=== PATIENT | male | born 1960 | race Caucasian/White ===

== ENCOUNTER 2016-07-25 09:41 | Inpatient (IN) | payer OTHER ==
--- NOTE | 2016-07-25 10:16 | EDPHY ---
H & P Time Seen by Provider: 07/25/16 10:13 HPI/ROS: Chief complaint. Abdominal pain HPI. 55-year-old male long history of Crohn's disease presents with abdominal pain beginning last night worse today. It is periumbilical described as stabbing. No radiation. It is associated with nausea vomiting diarrhea. He has been off Humira secondary to waiting for a hip replacement. Saw his pain management physician yesterday who switched him from oxycodone which the patient has been using for years to Belbuca which appears to be and agonist antagonist. No fever. Similar symptoms to previous Crohn's flare-ups ROS Constitutional. no fever/chills, no weakness Eyes. no problems with vision ENT. no sore throat, no nasal drainage Cardiovascular. no chest pain Respiratory. no shortness of breath, no cough Abdominal. Abdominal pain with vomiting and diarrhea . no problems urinating MS. no calf pain/swelling, no neck/back pain, no joint pain Skin. no rash Lymph. no swollen glands Neuro. no headache, no dizziness, no difficulty walking or with speech Past Medical/Surgical History: Past medical history Crohn's disease, bowel resection, vascular necrosis both hips Social History: , nonsmoker, no alcohol Smoking Status: Former smoker Physical Exam: General Appearance: Alert well-developed male moderate distress vital signs are stable with a little bit of hypertension Eyes: Pupils equal and round no pallor or injection. ENT, Mouth: Mucous membranes are moist. Respiratory: There are no retractions, lungs are clear to auscultation. Cardiovascular: Regular rate and rhythm. Gastrointestinal: Abdomen is diffusely tender. No masses. Normal bowel sounds Neurological: Awake and alert, sensory and motor exams grossly normal. Skin: Warm and dry, no rashes. Musculoskeletal: Neck is supple nontender. Extremities symmetrical, full range of motion. Psychiatric: Patient is oriented X 3, there is no agitation. Constitutional: Initial Vital Signs Temperature (C) 36.7 C 07/25/16 09:45 Heart Rate 74 07/25/16 09:45 Respiratory Rate 14 07/25/16 09:45 Blood Pressure 160/103 H 07/25/16 09:45 O2 Sat (%) 95 07/25/16 09:45 O2 Delivery Mode Room Air O2 (L/minute) 2 Allergies/Adverse Reactions: fentanyl Allergy (Verified 05/19/16 10:52) Dyspnea nalbuphine HCl [From Nubain] Allergy (Verified 05/19/16 10:52) Other-Enter Comments Home Medications: Medication Instructions Recorded Ondansetron Odt [Zofran Odt 4 mg 8 mg PO TID PRN 02/25/16 (*)] Prochlorperazine Maleate 25 mg RC DAILY PRN 02/25/16 [Compazine 25mg supp (*)] Adalimumab [Humira Pen] 40 mg SQ SA 04/17/16 Cyanocobalamin [Vitamin B12 1,000 mcg IM Q30D 04/17/16 1000MCG/ML (*)] Herbals/Supplements -Info Only 1 ea PO DAILY 04/17/16 Hydrocortisone Acetate [Proctosert 30 mg RC DAILY PRN 04/17/16 Hc] SUMAtriptan [Imitrex 50 MG (*)] 50 mg PO DAILY PRN 04/17/16 oxyCODONE IR [Oxycodone Ir (*)] 60 mg PO Q4 PRN #90 tab 05/23/16 Buprenorphine HCl [Belbuca] 300 mcg BC BID 07/25/16 oxyCODONE IR [Oxycodone Ir (*)] 5 mg PO Q6H PRN 07/25/16 Medical Decision Making - Diagnostics Imaging: CT abdomen and pelvis with IV contrast shows thickening of the transverse and descending colon consistent with inflammatory bowel disease. No evidence of perforation or abscess Procedures: IV normal saline. Dilaudid for pain. Zofran for nausea I-STAT is performed and is normal ED Course/Re-evaluation: 11:40 a.m. patient has had 3 mg of Dilaudid IV and is asking for more. At this point we will decline. Certainly there may be some element of narcotic withdrawal but there may be some element of drug-seeking behavior as well I have discussed imaging and lab results with the patient and his . We discussed treatment plan including need for admission and further evaluation. They expressed understanding and agreement I consulted and discussed the case with Dr. Bassett, hospitalist, who agrees to the admission Differential Diagnosis: Patient has long history of Crohn's disease with 5 in colon resections. He was switched from chronic opiate use to an antagonist agonist yesterday. I suspect that there is some element of opiate withdrawal with his symptoms. CT does show inflamed transverse and descending colon consistent with Crohn's disease. No evidence of abscess. Plan is admission - Data Points Laboratory Results: Laboratory Results 07/25/16 10:21 07/25/16 10:03 07/25/16 07/25/16 07/25/16 10:21 10:06 10:03 WBC 10.18 10^3/uL H 10^3/uL (3.80-9.50) RBC 4.67 10^6/uL 10^6/uL (4.40-6.38) Hgb 14.5 g/dL g/dL (13.7-17.5) POC Hgb 15.6 gm/dL gm/dL (14.5-17.3) Hct 42.3 % % (40.0-51.0) POC Hct 46 % % (42.8-50.6) MCV 90.6 fL fL (81.5-99.8) MCH 31.0 pg pg (27.9-34.1) MCHC 34.3 g/dL g/dL (32.4-36.7) RDW 12.7 % % (11.5-15.2) Plt Count 258 10^3/uL 10^3/uL (150-400) MPV 9.2 fL fL (8.7-11.7) Neut % (Auto) 77.0 % H % (39.3-74.2) Lymph % (Auto) 18.7 % % (15.0-45.0) Travis % (Auto) 3.5 % L % (4.5-13.0) Eos % (Auto) 0.2 % L % (0.6-7.6) Baso % (Auto) 0.3 % % (0.3-1.7) Nucleat RBC Rel Count 0.0 % % (0.0-0.2) Absolute Neuts (auto) 7.84 10^3/uL H 10^3/uL (1.70-6.50) Absolute Lymphs (auto) 1.90 10^3/uL 10^3/uL (1.00-3.00) Absolute Monos (auto) 0.36 10^3/uL 10^3/uL (0.30-0.80) Absolute Eos (auto) 0.02 10^3/uL L 10^3/uL (0.03-0.40) Absolute Basos (auto) 0.03 10^3/uL 10^3/uL (0.02-0.10) Absolute Nucleated RBC 0.00 10^3/uL 10^3/uL (0-0.01) Immature Gran % 0.3 % % (0.0-1.1) Immature Gran # 0.03 10^3/uL 10^3/uL (0.00-0.10) POC Sodium 139 mEq/L mEq/L (134-144) Sodium 137 mEq/L mEq/L (134-144) POC Potassium 3.9 mEq/L mEq/L (3.3-5.0) Potassium 4.1 mEq/L mEq/L (3.5-5.2) POC Chloride 104 mEq/L mEq/L (96-108) Chloride 103 mEq/L mEq/L (97-110) Carbon Dioxide 21 mEq/l L mEq/l (22-31) Anion Gap 13 mEq/L mEq/L (8-16) POC BUN 16 mg/dL mg/dL (7-23) BUN 15 mg/dL mg/dL (7-23) Creatinine 0.9 mg/dL mg/dL (0.7-1.3) POC Creatinine 0.9 mg/dL mg/dL (0.8-1.5) Estimated GFR > 60 Glucose 128 mg/dL H mg/dL (70-100) POC Glucose 136 mg/dL H mg/dL (70-100) Calcium 10.0 mg/dL mg/dL (8.5-10.4) Total Bilirubin 1.3 mg/dL mg/dL (0.1-1.4) Conjugated Bilirubin 0.6 mg/dL H mg/dL (0.0-0.5) Unconjugated Bilirubin 0.7 mg/dL mg/dL (0.0-1.1) AST 23 IU/L IU/L (17-59) ALT 33 IU/L IU/L (21-72) Alkaline Phosphatase 94 IU/L IU/L (38-126) Total Protein 8.0 g/dL g/dL (6.3-8.2) Albumin 4.6 g/dL g/dL (3.5-5.0) Lipase 130.0 IU/L IU/L (23-300) Medications Given: Discontinued Medications Hydromorphone HCl (Dilaudid) 1 mg IVP EDNOW ONE Stop: 07/25/16 10:23 Last Admin: 07/25/16 10:30 Dose: 1 mg Hydromorphone HCl (Dilaudid) 1 mg IVP EDNOW ONE Stop: 07/25/16 10:47 Last Admin: 07/25/16 10:47 Dose: 1 mg Hydromorphone HCl (Dilaudid) 1 mg IVP EDNOW ONE Stop: 07/25/16 11:16 Last Admin: 07/25/16 11:17 Dose: 1 mg Hydromorphone HCl (Dilaudid) 1 mg IVP EDNOW ONE Stop: 07/25/16 13:36 Last Admin: 07/25/16 13:52 Dose: 1 mg Sodium Chloride (Ns) 1,000 mls @ 0 mls/hr IV ONCE ONE PRN Reason: Wide Open Stop: 07/25/16 10:22 Last Admin: 07/25/16 10:31 Dose: 1,000 mls Ondansetron HCl (Zofran) 4 mg IVP EDNOW ONE Stop: 07/25/16 10:22 Last Admin: 07/25/16 10:31 Dose: 4 mg Point of Care Test Results: 07/25/16 10:06 POC Sodium 139 POC Potassium 3.9 POC Chloride 104 POC BUN 16 POC Creatinine 0.9 POC Glucose 136 H Departure - Departure Disposition: [facility] Inpatient Acute Clinical Impression: Abdominal pain Qualifiers: Abdominal location: generalized Qualified Code(s): R10.84 - Generalized abdominal pain Condition: Fair
[2016-07-25] MEDS ORDERED: NS 1,000 ML IV ONE (10:21)
[2016-07-25] MEDS ORDERED: ONDANSETRON 4 MG/2 ML VIAL IVP ONE (10:21)
[2016-07-25] MEDS ORDERED: HYDROmorphONE/DILAUDID 1 MG/ML SYR IVP ONE ×4 (10:22→13:35)
[2016-07-25] MEDS ORDERED: IOPAMIDOL (ISOVUE-300) 100 ML BTL IV ONE (10:28)
[2016-07-25 10:30] LABS: % IMMATURE GRANULYOCYTES 0.3 % (0.0-1.1); ABSOLUTE IMMATURE GRANULOCYTES 0.03 10^3/uL (0.00-0.10); ADD DIFF? NO; ADD MORPH? NO; ADD SCAN? NO; ATYPICAL LYMPHOCYTE FLAG 10 (0-99); FRAGMENT RBC FLAG 0 (0-99); HEMATOCRIT 42.3 % (40.0-51.0); HEMOGLOBIN 14.5 g/dL (13.7-17.5); LEFT SHIFT FLG 0 (0-99); LIPEMIA HEMOLYSIS FLAG 90 (0-99); MEAN CELL HEMOGLOBIN CONCENTR. 34.3 g/dL (32.4-36.7); MEAN CELL VOLUME 90.6 fL (81.5-99.8); MEAN PLATELET VOLUME 9.2 fL (8.7-11.7); PLATELET CLUMPS FLAG 10 (0-99); PLATELET COUNT 258 10^3/uL (150-400); RED BLOOD CELL COUNT 4.67 10^6/uL (4.40-6.38); RED CELL DISTRIBUTION WIDTH 12.7 % (11.5-15.2)
[2016-07-25] MEDS ORDERED: HYDROmorphONE/DILAUDID 1 MG/ML SYR ONE (10:43)
[2016-07-25 10:52] LABS: ALANINE AMINOTRANSFERASE 33 IU/L (21-72); ALBUMIN 4.6 g/dL (3.5-5.0); ALKALINE PHOSPHATASE 94 IU/L (38-126); ANION GAP 13 mEq/L (8-16); ASPARTATE AMINOTRANSFERASE 23 IU/L (17-59); BILIRUBIN,TOTAL 1.3 mg/dL (0.1-1.4); BILIRUBIN-CONJUGATED 0.6 mg/dL (0.0-0.5); BILIRUBIN-UNCONJUGATED 0.7 mg/dL (0.0-1.1); CARBON DIOXIDE 21 mEq/l (22-31); CHLORIDE 103 mEq/L (97-110); CREATININE 0.9 mg/dL (0.7-1.3); GLOMERULAR FILTRATION RATE > 60; GLUCOSE 128 mg/dL (70-100); POTASSIUM 4.1 mEq/L (3.5-5.2); SODIUM 137 mEq/L (134-144)
[2016-07-25] MEDS ORDERED: ACETAMINOPHEN 325 MG TAB PO PRN (12:46)
[2016-07-25] MEDS ORDERED: ONDANSETRON DISINTEGRATING 4 MG TAB PO PRN (12:46)
[2016-07-25] MEDS ORDERED: ONDANSETRON 4 MG/2 ML VIAL IVP PRN (12:46)
[2016-07-25 14:10] LABS: HEMATOCRIT 42.5 % (40.0-51.0)
[2016-07-25] MEDS ORDERED: SUMAtriptan 50 MG TAB PO PRN (14:54)
[2016-07-25] MEDS ORDERED: HYDROCORTISONE ACETATE 30 MG RC PRN (14:54)
[2016-07-25] MEDS ORDERED: HYDROmorphONE/DILAUDID 1 MG/ML SYR IVP PRN (15:44)
[2016-07-25] MEDS: NS 1,000 ML IV SCH (16:10)
--- NOTE | 2016-07-25 16:12 | GHP ---
[f rep st] HISTORY AND PHYSICAL DATE OF ADMISSION: 07/25/2016 CHIEF COMPLAINT: 1. History of Crohn's. 2. Acute pain crisis. HISTORY OF PRESENT ILLNESS: The patient is a 55-year-old male with a history of Crohn's disease status post several bowel resections and complications such as fistulas, presenting with acute abdominal pain. He was most recently admitted in May of 2016 for an acute Crohn's flare. At that time, he had been off his Humira for a couple of months for an elective right hip replacement. During hospital stay here in summer, he was evaluated by GI and was restarted on his Humira with a loading dose of 80 mg and then back 40 mg weekly. He is mainly followed by Dr. Antunez at [place], but is establishing care at [facility] with Dr. Bowers in August. He reports his chronic pain as feeling that he is getting disemboweled, and his stomach is twisting. It is sharp and feels like a knife. His pain at best is a 2/3. He is currently taking oxycodone 30 mg 8 times a day. He has diarrhea chronically 10 times a day. No blood. No melena. The patient [facility] by the Juli, Johanny Gill. I spoke with her on phone. She states she dosed him based on his reported home dose. However, it appears that he is taking more than reported to her. He was started on Oxycodone 5mg QID for breakthrough with buccal Belbuca 300 mcg twice a day. He took his last dose of oxycodone yesterday morning. Pain overnight became out of control, 10/10, sharp, diffuse. He reports having chills, sweats, nausea, vomiting. No fevers. No joint pain. REVIEW OF SYSTEMS: I completed a 10-point review of systems. Negative except as noted in HPI. PAST MEDICAL HISTORY: 1. Chronic abdominal pain secondary to Crohn's disease. 2. Crohn's disease, followed by Dr. Antunez at [facility]. 3. Chronic avascular necrosis, bilateral hips. 4. Migraines. PAST SURGICAL HISTORY: 1. Left DANIEL. 2. Planned right DANIEL in May of 2016, but this was cancelled secondary to Crohn's flare. 3. Five bowel resections. 4. Surgeries for anal fistulas. FAMILY HISTORY: Mom with colitis, diverticulitis. Father with diabetes. ALLERGIES: Fentanyl and Nubain. SOCIAL HISTORY: Has lived in [place] for 4 months, from [place]. Lives with his . He is on disability. No illicits, alcohol or tobacco. HOME MEDICATIONS: 1. Oxycodone 30 mg, 8 times a day, last taken yesterday morning. 2. Belbuca 300 mcg buccal b.i.d. 3. Herbal supplement. 4. Vitamin B12 1000 mcg daily. 5. Humira 40 mg q.week on Saturdays. 6. Imitrex p.r.n. 7. Compazine p.r.n. 8. Zofran p.r.n. 9. Hydrocortisone acetate rectally p.r.n. PHYSICAL EXAM: VITAL SIGNS: Temperature 36.7, blood pressure 164/88, heart rate 70s, respirations 16, 93% on room air. GENERAL: Patient in significant distress, curled up in ball secondary to pain, rocking back and forth. HEENT: Pupils are small, round, reactive. No conjunctival pallor. CV: Regular rate and rhythm. No murmurs, gallops, or rubs. LUNGS: Clear to auscultation bilaterally. ABDOMEN: Soft, nondistended. Diffuse tenderness throughout out of proportion to my exam. He has positive bowel sounds throughout. No rebound or guarding. : No suprapubic tenderness. MUSCULOSKELETAL: 5/5 upper lower extremity strength. NEURO: 2 through 12 intact. PSYCH: Alert and oriented x3 , uncomfortable. Tearful during interview secondary to pain. LABS: WBC 10, hemoglobin 14, hematocrit 42, platelets 258. Sodium 139, potassium 3.9, chloride 104, BUN 16, creatinine 0.9, glucose 136. CRP is 5, lipase 130. UA: +1 glucose, ESR 16. CT scan: Colitis with circumferential wall thickening of transverse descending and sigmoid colon, representing inflammatory bowel disease versus nonspecific infectious/inflammatory colitis. No abscess, bowel obstruction or pneumoperitoneum. Previous partial right hemicolectomy with ileocolic anastomoses. ASSESSMENT AND PLAN: 1. Acute abdominal/pain crisis: differential is Crohn's flare versus opioid withdrawal. Suspect more of withdrawal. I will stop Belbucca and restart oxycodone with goal of 15mg QID at discharge. Also provide PRN Ativan, Catapress if needed. There is new inflammation on CT suggestive of flare. He was off Humira for 2 months for planned R DANIEL; this was restarted in May. I planned on IV steroids, but he declined, because it will delay his hip surgery. His inflammatory markers are normal. If not improving, will contact Gastroenterology for further assistance. There was no evidence of abscess, bowel obstruction or pneumoperitoneum on CT. 2. Migraines. Continue home medications. 3. Chronic avascular necrosis of hip. At some point, will have a right hip replacement. 4. Diet. Clears. 5. Deep vein thrombosis prophylaxis. Lovenox. DISPOSITION: Patient warrants inpatient admission given acute pain crisis requiring IV opioids, IV steroids, serial labs. Time spent on admission 100 min in which 45 min speaking to [employer] at [facility] about treatment plan and remaining tome counseling pt on pain control, steroids and reviewing labs, data /[id number]/MODL MTDD
[2016-07-25] MEDS ORDERED: IBUPROFEN 600 MG TAB PO PRN (16:18)
[2016-07-25] MEDS ORDERED: LORazepam 1 MG TAB PO PRN (16:21)
[2016-07-25] MEDS: HYDROmorphONE/DILAUDID 1 MG/ML SYR IVP PRN (18:59)
[2016-07-25] MEDS: LORazepam 2 MG/ML INJ IVP PRN (20:27)
[2016-07-25] MEDS ORDERED: methylPREDNISolone SOD SUCC 40 MG/ML VIAL IVP SCH (22:00)
[2016-07-26] MEDS: LORazepam 2 MG/ML INJ IVP PRN (00:18)
[2016-07-26] MEDS: NS 1,000 ML IV SCH ×3 (00:19→19:52)
[2016-07-26] MEDS: HYDROmorphONE/DILAUDID 1 MG/ML SYR IVP PRN ×4 (04:22→19:52)
[2016-07-26 06:00] LABS: HEMOGLOBIN 11.9 g/dL (13.7-17.5); MEAN CELL HEMOGLOBIN 31.7 pg (27.9-34.1); MEAN CELL VOLUME 93.3 fL (81.5-99.8); RED BLOOD CELL COUNT 3.75 10^6/uL (4.40-6.38); RED CELL DISTRIBUTION WIDTH 12.7 % (11.5-15.2)
[2016-07-26 06:11] LABS: ANION GAP 8 mEq/L (8-16); CALCIUM 8.6 mg/dL (8.5-10.4); CARBON DIOXIDE 24 mEq/l (22-31); CHLORIDE 107 mEq/L (97-110); CREATININE 0.8 mg/dL (0.7-1.3); GLOMERULAR FILTRATION RATE > 60; GLUCOSE 87 mg/dL (70-100); POTASSIUM 3.6 mEq/L (3.5-5.2); SODIUM 139 mEq/L (134-144)
--- NOTE | 2016-07-26 08:34 | HOSPPROG ---
Hospitalist Progress Note Assessment/Plan: #Acute abdominal pain: pain better controlled this morning. No BM overnight. Still difficult to differentiate if all withdrawal sxs or acute with colitis -check C diff. Start on empiric steroids. I spoke with Dr. Esposito with GI and he agreed with steroids; if improvement, then taper 8 weeks course (40mg and then decrease by 5mg weekly) #Opioid withdrawal: I had 2 conversations with him today and he became very angry and tearful. I will change him to 60mg QID (he stated 30mg, 8x daily yesterday). COWs protocol, PRN IV dilaudid breakthrough #Chronn's with possible flare: diffuse colitis new from CT in Dec (personally reviewed by me) #Accelerated HTN: resolved. Due to pain #Chronic right hip avascular necrosis: surgery in Dec was cancelled due to flare , immunocompromise on Humira, prior IV steroids. -spoke #Social issues: pt has been very angry and yelling at myself and staff. Threatened to call stat team to his room. I had 2 conversations with him today and stated that it is unacceptable to talk to myself or staff in this manner #Diet: clears, ADAT #DVT px: SCDs #Disp: DC once pain better controlled. Will need FU [facility] Subjective: agitated this morning. "I shouldn't have to suffer". No BM overnight Objective: Vital Signs Temp Pulse Resp BP Pulse Ox 37.1 C 70 18 113/67 95 07/26/16 07:42 07/26/16 07:42 07/26/16 07:42 07/26/16 07:42 07/26/16 07:42 Laboratory Results 07/26/16 04:40 07/26/16 04:40 07/25/16 07/26/16 07/27/16 05:59 05:59 05:59 Intake Total 3395 Output Total 800 Balance 2595 - Physical Exam Constitutional: other (pale) Eyes: PERRL Ears, Nose, Mouth, Throat: moist mucous membranes, hearing normal Cardiovascular: regular rate and rhythym, no murmur, rub, or gallop Respiratory: no respiratory distress Gastrointestinal: normoactive bowel sounds, other (mild diffuse TTP, greater in LLQ) Genitourinary: no bladder fullness Skin: warm Musculoskeletal: full muscle strength Neurologic: AAOx3, CN II-XII Intact Psychiatric: interacting appropriately ICD10 Worksheet Patient Problems: Problems Problem Status Onset Abdominal pain Acute
[2016-07-26] MEDS ORDERED: Adalimumab [Humira Pen] 40 MG SQ SCH (09:00)
[2016-07-26] MEDS ORDERED: Herbals/Supplements -Info Only PO SCH (09:00)
[2016-07-26] MEDS: methylPREDNISolone SOD SUCC 40 MG/ML VIAL IVP SCH ×2 (14:48→21:37)
[2016-07-27] MEDS: HYDROmorphONE/DILAUDID 1 MG/ML SYR IVP PRN ×4 (00:40→22:03)
[2016-07-27 05:25] LABS: HEMATOCRIT 35.7 % (40.0-51.0); HEMOGLOBIN 12.2 g/dL (13.7-17.5); MEAN CELL HEMOGLOBIN 31.6 pg (27.9-34.1); MEAN CELL HEMOGLOBIN CONCENTR. 34.2 g/dL (32.4-36.7); MEAN CELL VOLUME 92.5 fL (81.5-99.8); RED BLOOD CELL COUNT 3.86 10^6/uL (4.40-6.38); RED CELL DISTRIBUTION WIDTH 12.4 % (11.5-15.2)
[2016-07-27] MEDS: methylPREDNISolone SOD SUCC 40 MG/ML VIAL IVP SCH ×3 (06:45→22:04)
[2016-07-27] MEDS: NS 1,000 ML IV SCH (06:45)
--- NOTE | 2016-07-27 13:23 | HOSPPROG ---
Hospitalist Progress Note Assessment/Plan: #Acute abdominal pain: better controlled on his home dose oxycodone, #Opioid withdrawal: I had 2 conversations with him today and he became very angry and tearful. I will change him to 60mg QID (he stated 30mg, 8x daily yesterday). COWs protocol, PRN IV dilaudid breakthrough #Chronn's with possible flare: diffuse colitis new from CT in Dec (personally reviewed by me). Would expect increased diarrhea, but he says his gut slows down with flare. Check C diff #Accelerated HTN: resolved. Due to pain #Chronic right hip avascular necrosis: surgery in Dec was cancelled due to flare , immunocompromise on Humira, prior IV steroids. #Social issues: pt was not angry or verbally aggressive to myself or staff today #Diet: ADAT #DVT px: SCDs #Disp: DC once having BMs Subjective: pain better controlled. Passing gas, no BM Objective: Vital Signs Temp Pulse Resp BP Pulse Ox 37.3 C 55 L 18 114/59 L 99 07/27/16 07:43 07/27/16 07:43 07/27/16 07:43 07/27/16 07:43 07/27/16 07:43 Laboratory Results 07/27/16 05:02 07/26/16 04:40 07/26/16 07/27/16 07/28/16 05:59 05:59 05:59 Intake Total 3395 3345 Output Total 800 Balance 2595 3345 - Physical Exam Constitutional: no apparent distress, chronically ill appearing Eyes: PERRL, anicteric sclera Ears, Nose, Mouth, Throat: moist mucous membranes, hearing normal Cardiovascular: regular rate and rhythym, no murmur, rub, or gallop Respiratory: no respiratory distress Gastrointestinal: normoactive bowel sounds, soft, non-tender abdomen, other ( well-healed abd surgical scars) Genitourinary: no bladder fullness Skin: warm, normal color Musculoskeletal: full muscle strength Neurologic: AAOx3, CN II-XII Intact ICD10 Worksheet Patient Problems: Problems Problem Status Onset Abdominal pain Acute
[2016-07-27 16:22] VITALS: O2SAT 92
[2016-07-28] MEDS: methylPREDNISolone SOD SUCC 40 MG/ML VIAL IVP SCH (05:29)
[2016-07-28 08:35] VITALS: BP 117/68; PULSE 75; RESP 14; TEMP 98.4
[2016-07-28] MEDS ORDERED: THIAMINE HCL 100 MG TAB PO SCH (09:00)
--- NOTE | 2016-07-28 11:32 | PDDCSUM ---
Discharge Summary Discharge Summary: DISCHARGE SUMMARY FOLLOW-UP ITEMS: Outpatient colonoscopy DATE OF ADMISSION: 07/25/2016 DATE OF DISCHARGE: 07/28/2016 DISCHARGE DIAGNOSES: 1. Acute abdominal pain 2. Possible acute Crohn's disease flare 3. Chronic hypertension 4. Chronic right hip avascular necrosis 5. Chronic pain with continuous opiate dependency 6. Acute opiate withdrawal. CONSULTATIONS: None PROCEDURES / IMAGING: Abdominal CT demonstrating circumferential inflammation in the transverse, descending, sigmoid colon without abscess formation CHIEF COMPLAINT: Acute abdominal pain SUBJECTIVE: Patient reports abdominal pain and nausea is well controlled with the oxycodone and Zofran PHYSICAL EXAM ON DISCHARGE: Systolic blood pressure is 110-130, heart rate 60, afebrile overnight, satting well on room air, abdomen is soft nontender nondistended with bowel sounds present LABS ON DISCHARGE: Creatinine 0.8, white blood cell count 6100, hemoglobin 12.2, ESR 16, CRP negative HOSPITAL COURSE BY PROBLEM: 1. Acute abdominal pain. Suspect that patient's pain has been triggered by an acute Crohn's disease flare and there is most likely a chronic pain functional component as well. He required high doses of oral oxycodone immediate release as well as antiemetics. His pain is currently well controlled and he will be discharged home with a limited supply of oral oxycodone and Zofran. 2. Possible acute Crohn's disease flare. CT of the abdomen demonstrates new inflammation from his CT scan in May and this would suggest a Crohn's disease flare. That being said, patient's inflammatory markers are negative. He was initiated on IV steroids and his abdominal pain improved. He will be discharged home on prednisone 40 mg daily with immediate outpatient follow-up with Dr. Bowers. 3. Chronic pain with continuous opiate dependency. Patient was continued on the oxycodone he reports he has chronically been taking. He reports that he is scheduled to see a bridge painter. 4. Chronic hypertension. Most likely secondary to pain, no indication for antihypertensive medications at this time. 5. Chronic right hip avascular necrosis. Patient will be seeing his general surgeon after he has followed up with Dr. Bowers and discontinue steroids. 6. Acute opiate withdrawal. Patient's oxycodone dose was slightly reduced and he did experience some acute opiate withdrawal symptoms. The time of discharge , he appears well and this situation seems to be resolved. DISCHARGE MEDICATIONS: Please see official discharge medication reconciliation sheet in chart , oxycodone immediate release 30-60 mg, 20 tablets prescribed, prednisone 40 mg daily, Zofran as needed. DISCHARGE INSTRUCTIONS: Patient will follow up with GI of the [facility] within 1 week.
[2016-08-08] MEDS ORDERED: CYANO/VITAMIN B12 1000 MCG/ML VIAL IM SCH (09:00)
== END 2016-07-28 13:25 | disposition home or self-care (01) | DRG 386 ==
LOC: OBSVTOIN 12:46 → F3E 14:09
PROVIDERS: ADMIT Internal Medicine; ATTEND Internal Medicine
DX: K50.90 Crohn's disease, unspecified, without complications (principal); M87.88 Other osteonecrosis, other site; F11.23 Opioid dependence with withdrawal; I10 Essential (primary) hypertension; G89.29 Other chronic pain; Z87.891 Personal history of nicotine dependence; G43.909 Migraine, unspecified, not intractable, without status migrainosus
CPT/HCPCS: 82947-QW; 96374; J1170; J2405; Q9967

== ENCOUNTER 2016-10-26 18:10 | Inpatient (IN) | payer OTHER ==
[2016-10-26] MEDS ORDERED: ONDANSETRON 4 MG/2 ML VIAL IVP ONE (18:33)
[2016-10-26] MEDS ORDERED: HYDROmorphONE/DILAUDID 1 MG/ML SYR IVP ONE ×2 (18:33→19:48)
[2016-10-26] MEDS ORDERED: NS 1,000 ML IV ONE ×2 (18:33→20:20)
--- NOTE | 2016-10-26 18:40 | EDPHY ---
H & P Stated Complaint: ABDOMINAL PAIN, VOMITING, DIARRHEA Time Seen by Provider: 10/26/16 18:22 HPI/ROS: CHIEF COMPLAINT: Abdominal pain HISTORY OF PRESENT ILLNESS: the patient is a 56-year-old man who comes to the emergency department complaining of abdominal and nausea. He has a history of Crohn's disease and takes Humira and Entocort chronically. He states that he has had 5 bowel resections. He is concerned about an obstruction today. He states that he can feel it twisting. He typically requires large doses of opioids and steroid burst and frequently admission the hospital. He is trying to wean himself off of opiates. He follows with Dr. Lancaster for pain management and Dr. Bowers from GI. REVIEW OF SYSTEMS: Constitutional: denies: chills, fever, recent illness, recent injury EENTM: denies: blurred vision, double vision, nose congestion Respiratory: denies: cough, shortness of breath Cardiac: denies: chest pain, irregular heart rate, lightheadedness, palpitations Gastrointestinal/Abdominal: See HPI Genitourinary: denies: dysuria, frequency, hematuria, pain Musculoskeletal: denies: joint pain, muscle pain Skin: denies: lesions, rash, jaundice, bruising Neurological: denies: headache, numbness, paresthesia, tingling, dizziness, weakness Hematologic/Lymphatic: denies: blood clots, easy bleeding, easy bruising Immunologic/allergic: denies: HIV/AIDS, transplant EXAM: GENERAL: Well-appearing, well-nourished and in moderate distress. HEAD: Atraumatic, normocephalic. EYES: Pupils equal round and reactive to light, extraocular movements intact, sclera anicteric, conjunctiva are normal. ENT: TMs normal, nares patent, oropharynx clear without exudates. Moist mucous membranes. NECK: Normal range of motion, supple without lymphadenopathy or JVD. LUNGS: Breath sounds clear to auscultation bilaterally and equal. No wheezes rales or rhonchi. HEART: Regular rate and rhythm without murmurs, rubs or gallops. ABDOMEN: diffuse tenderness and pain BACK: No CVA tenderness, no spinal tenderness, step-offs or deformities EXTREMITIES: Normal range of motion, no pitting or edema. No clubbing or cyanosis. NEUROLOGICAL: Cranial nerves II through XII grossly intact. Normal speech, normal gait. 5/5 strength, normal movement in all extremities, normal sensation PSYCH: Normal mood, normal affect. SKIN: Warm, dry, normal turgor, no visible rashes or lesions. Source: Patient Exam Limitations: No limitations - Personal History Current Tetanus Diphtheria and Acellular Pertussis (TDAP): Yes Tetanus Vaccine Date: <10yrs - Medical/Surgical History Hx Asthma: No Hx Chronic Respiratory Disease: No Hx Diabetes: No Hx Cardiac Disease: No Hx Renal Disease: No Hx Cirrhosis: No Hx Alcoholism: No Hx HIV/AIDS: No Hx Splenectomy or Spleen Trauma: No Other PMH: Crohn's disease, Bowel dissection x5, vascular necrosis -both hips. - Family History Significant Family History: No pertinent family hx - Social History Smoking Status: Former smoker Alcohol Use: Sober Drug Use: None Constitutional: Initial Vital Signs Temperature (C) 36.7 C 10/26/16 18:13 Heart Rate 63 10/26/16 18:13 Respiratory Rate 16 10/26/16 18:13 Blood Pressure 141/99 H 10/26/16 18:13 O2 Sat (%) 91 L 10/26/16 18:13 O2 Delivery Mode Room Air Allergies/Adverse Reactions: fentanyl Allergy (Verified 10/26/16 18:17) Dyspnea nalbuphine HCl [From Nubain] Allergy (Verified 10/26/16 18:17) Other-Enter Comments Home Medications: Medication Instructions Recorded Prochlorperazine Maleate 25 mg RC DAILY PRN 02/25/16 [Compazine 25mg supp (*)] Adalimumab [Humira Pen] 40 mg SQ SA 04/17/16 Cyanocobalamin [Vitamin B12 1,000 mcg IM Q30D 04/17/16 1000MCG/ML (*)] Hydrocortisone Acetate [Proctosert 30 mg RC DAILY PRN 04/17/16 Hc] SUMAtriptan [Imitrex 50 MG (*)] 50 mg PO DAILY PRN 04/17/16 Ondansetron Odt [Zofran Odt 4 mg 8 mg PO TID PRN #40 tab 07/28/16 (*)] Budesonide [Budesonide EC] 9 mg PO HS 10/26/16 OXYCODONE HCL [OXYCODONE HCL] 30 mg PO Q8 10/26/16 Medical Decision Making - Diagnostics Imaging Results: Imaging Impressions Abdomen CT 10/26/16 18:34 Impression: 1. No bowel obstruction, pneumoperitoneum, or focal fluid collection. 2. Atherosclerotic aorta without aneurysm. 3. Bilateral renal cysts without evidence of urinary tract obstruction. 4. No hepatosplenomegaly or ascites. Findings discussed with Emergency Department physician, Shaan Littlejohn, at 1946 hours, 10/26/2016. Final report concurs with initial preliminary interpretation. ED Course/Re-evaluation: 7:40 p.m. we discussed the patient's CT results. Initially I ordered Haldol to help control his pain initially was agreeable to this but later declines stating he does not want to take other medications besides opiates. We discussed non opiate alternatives. We discussed addiction and dependency which she is already very aware of. His lab work and CT are reassuring. Eventually we agreed to do 1 more dose of Dilaudid and will discharge him home to follow up with his pain management and GI physician 9:05 p.m. the patient and spouse are angry. They do not wish to go home. he was feeling much better but his pain is returning. He continues to refuse any alternative pain medications other than opiates. CT and lab work is unremarkable. They are requesting admission for bowel rest and IV fluids. I spoke with Dr. Анна Lee who will admit to the medical surgical floor. Differential Diagnosis: Partial list of the Differential diagnosis considered include but were not limited to; Crohn's disease, opiate dependency, small bowel obstruction and although unlikely based on the history and physical exam, I also considered ischemic bowel, volvulus, dissection. I discussed these differential diagnoses and the plan with the patient as well as the usual and expected course. The patient and understand that the diagnosis is provisional and that in medicine we are not always correct and that further workup is often warranted. Usual and customary warnings were given. All of the patient's questions were answered. The patient was instructed to return to the emergency department should the symptoms at all worsen or return, otherwise to followup with the physician as we discussed. - Data Points Laboratory Results: Laboratory Results 10/26/16 18:59 10/26/16 18:59 10/26/16 10/26/16 18:59 18:59 WBC 8.54 10^3/uL 10^3/uL (3.80-9.50) RBC 4.36 10^6/uL L 10^6/uL (4.40-6.38) Hgb 14.0 g/dL g/dL (13.7-17.5) Hct 40.9 % % (40.0-51.0) MCV 93.8 fL fL (81.5-99.8) MCH 32.1 pg pg (27.9-34.1) MCHC 34.2 g/dL g/dL (32.4-36.7) RDW 12.9 % % (11.5-15.2) Plt Count 234 10^3/uL 10^3/uL (150-400) MPV 9.5 fL fL (8.7-11.7) Neut % (Auto) 66.2 % % (39.3-74.2) Lymph % (Auto) 25.9 % % (15.0-45.0) [place] % (Auto) 6.2 % % (4.5-13.0) Eos % (Auto) 0.7 % % (0.6-7.6) Baso % (Auto) 0.5 % % (0.3-1.7) Nucleat RBC Rel Count 0.0 % % (0.0-0.2) Absolute Neuts (auto) 5.66 10^3/uL 10^3/uL (1.70-6.50) Absolute Lymphs (auto) 2.21 10^3/uL 10^3/uL (1.00-3.00) Absolute Monos (auto) 0.53 10^3/uL 10^3/uL (0.30-0.80) Absolute Eos (auto) 0.06 10^3/uL 10^3/uL (0.03-0.40) Absolute Basos (auto) 0.04 10^3/uL 10^3/uL (0.02-0.10) Absolute Nucleated RBC 0.00 10^3/uL 10^3/uL (0-0.01) Immature Gran % 0.5 % % (0.0-1.1) Immature Gran # 0.04 10^3/uL 10^3/uL (0.00-0.10) Sodium 140 mEq/L mEq/L (134-144) Potassium 4.0 mEq/L mEq/L (3.5-5.2) Chloride 107 mEq/L mEq/L (97-110) Carbon Dioxide 24 mEq/l mEq/l (22-31) Anion Gap 9 mEq/L mEq/L (8-16) BUN 14 mg/dL mg/dL (7-23) Creatinine 1.0 mg/dL mg/dL (0.7-1.3) Estimated GFR > 60 Glucose 95 mg/dL mg/dL (70-100) Calcium 9.4 mg/dL mg/dL (8.5-10.4) Total Bilirubin 1.0 mg/dL mg/dL (0.1-1.4) Conjugated Bilirubin 0.3 mg/dL mg/dL (0.0-0.5) Unconjugated Bilirubin 0.7 mg/dL mg/dL (0.0-1.1) AST 19 IU/L IU/L (17-59) ALT 29 IU/L IU/L (21-72) Alkaline Phosphatase 81 IU/L IU/L (38-126) Total Protein 7.2 g/dL g/dL (6.3-8.2) Albumin 4.2 g/dL g/dL (3.5-5.0) Lipase 48.0 IU/L IU/L (23-300) Departure - Departure Disposition: [facility] Inpatient Acute Clinical Impression: Abdominal pain Qualifiers: Abdominal location: generalized Qualified Code(s): R10.84 - Generalized abdominal pain Crohns disease Qualifiers: Gastrointestinal tract location: unspecified location Digestive disease complication type: without complication Qualified Code(s): K50.90 - Crohn's disease, unspecified, without complications Condition: Fair
[2016-10-26] MEDS ORDERED: DEXAMETHASONE 10 MG/ML VIAL IVP ONE (18:41)
[2016-10-26] MEDS ORDERED: IOPAMIDOL (ISOVUE-300) 100 ML BTL ONE (18:45)
[2016-10-26] MEDS ORDERED: ONDANSETRON 4 MG/2 ML VIAL ONE (18:56)
[2016-10-26 19:05] LABS: % IMMATURE GRANULYOCYTES 0.5 % (0.0-1.1); ABSOLUTE IMMATURE GRANULOCYTES 0.04 10^3/uL (0.00-0.10); ADD DIFF? NO; ADD MORPH? NO; ADD SCAN? NO; ATYPICAL LYMPHOCYTE FLAG 10 (0-99); FRAGMENT RBC FLAG 0 (0-99); HEMATOCRIT 40.9 % (40.0-51.0); LEFT SHIFT FLG 0 (0-99); LIPEMIA HEMOLYSIS FLAG 90 (0-99); MEAN CELL HEMOGLOBIN 32.1 pg (27.9-34.1); MEAN CELL HEMOGLOBIN CONCENTR. 34.2 g/dL (32.4-36.7); MEAN CELL VOLUME 93.8 fL (81.5-99.8); MEAN PLATELET VOLUME 9.5 fL (8.7-11.7); PLATELET CLUMPS FLAG 10 (0-99); PLATELET COUNT 234 10^3/uL (150-400); RED BLOOD CELL COUNT 4.36 10^6/uL (4.40-6.38); RED CELL DISTRIBUTION WIDTH 12.9 % (11.5-15.2)
[2016-10-26 19:20] LABS: ALANINE AMINOTRANSFERASE 29 IU/L (21-72); ALBUMIN 4.2 g/dL (3.5-5.0); ALKALINE PHOSPHATASE 81 IU/L (38-126); ANION GAP 9 mEq/L (8-16); ASPARTATE AMINOTRANSFERASE 19 IU/L (17-59); BILIRUBIN-CONJUGATED 0.3 mg/dL (0.0-0.5); BILIRUBIN-UNCONJUGATED 0.7 mg/dL (0.0-1.1); CALCIUM 9.4 mg/dL (8.5-10.4); CARBON DIOXIDE 24 mEq/l (22-31); CHLORIDE 107 mEq/L (97-110); GLOMERULAR FILTRATION RATE > 60; GLUCOSE 95 mg/dL (70-100); SODIUM 140 mEq/L (134-144); TOTAL PROTEIN 7.2 g/dL (6.3-8.2)
[2016-10-26] MEDS ORDERED: HALOPERIDOL LACT 5 MG/ML INJ IVP ONE (19:42)
[2016-10-26] MEDS ORDERED: HYDROmorphONE/DILAUDID 1 MG/ML SYR ONE (19:48)
[2016-10-27] MEDS ORDERED: ONDANSETRON 4 MG/2 ML VIAL IVP PRN (00:16)
[2016-10-27] MEDS ORDERED: ACETAMINOPHEN 325 MG TAB PO PRN (00:16)
[2016-10-27] MEDS ORDERED: ONDANSETRON DISINTEGRATING 4 MG TAB PO PRN (00:16)
[2016-10-27] MEDS ORDERED: SUMAtriptan 50 MG TAB PO PRN (00:33)
[2016-10-27] MEDS ORDERED: HYDROCORTISONE ACETATE 25 MG SUPP PR PRN (00:33)
[2016-10-27] MEDS ORDERED: oxyCODONE IR 5 MG TAB PO PRN ×2 (00:35→03:03)
[2016-10-27] MEDS ORDERED: CYANO/VITAMIN B12 1000 MCG/ML VIAL IM SCH (00:45)
[2016-10-27] MEDS: NS 1,000 ML IV SCH ×3 (01:18→15:22)
--- NOTE | 2016-10-27 01:31 | HOSPPROG ---
Hospitalist Progress Note Assessment/Plan: Called to bedside because patient himself called a STAT team. I along with the RN, zinc furnace charger, and [facility] evaluated patient. He became very angry when I began to speak with him. He stated that he would not take the oral oxycodone prescribed for breakthrough pain. He says that we are all "suspicious of him wanting pain meds". I merely asked if he had missed a dose of home oxycodone to determine if this was cause of pain. He became even more angry saying we have no compassion. He wants IV opioids, because was "vomiting", however he did not endorse this during my interview of him. I explained that his CT scan is improved from last visit with no e/o inflammation, abscess or obstruction. Labs are normal. I reviewed Dr. Littlejohn's report in the ER and he had planned to discharge, because clinical evaluation was reassuring. Patient and became angry, thus was admitted to hospital. Based on my exam, CT findings and labs, I do not feel it is in the patient's best interest for IV opioids given there is no clinical indication. Considered non-opioids agents, but not good candidate for Toradol, melissa since on steroids. He is on appropriate therapy including Humira, Entocort. I recommend that he contact his primary Physician Industrial and Pain specialist. Again, I was clear that my plan was to resume his home oxycodone and provide orals for breakthrough. Objective: Vital Signs Temp Pulse Resp BP Pulse Ox 36.8 C 52 L 16 111/65 95 10/26/16 23:56 10/26/16 23:56 10/26/16 23:56 10/26/16 23:56 10/26/16 23:56 10/25/16 10/26/16 10/27/16 05:59 05:59 05:59 Intake Total 1999 Balance 2000 ICD10 Worksheet Patient Problems: Problems Problem Status Onset Abdominal pain Acute Crohns disease Acute
--- NOTE | 2016-10-27 02:20 | GHP ---
[f rep st] HISTORY AND PHYSICAL DATE OF ADMISSION: 10/27/2016 CHIEF COMPLAINT: Abdominal pain. Primary Business Systems Technician: Dr. Esposito Pain Specialist: Dr. Franklin HISTORY OF PRESENT ILLNESS: Patient is a 56-year-old male with history of Crohn disease status post 5 bowel resections on Humira and Entocort. Last hospitalized Jul 2016 with flare as seen on CT. He came to ER today concerned about an obstruction. Had 4 episodes of nonbloody diarrhea today; normally has up to 8. Then developed increased pain on the left side that felt like a pinch, /10. "Like something was twisting". No vomiting, fevers or chills. He denies any change in his diet. He is followed by Dr. Esposito with [facility] who had planned for an additional scan as an outpatient. He is also followed closely by an outpatient pain management, and the plan is to wean his oxycodone from 30 q.8 to 20 q.6, but this has not started. He states he has been taking his normal dosage of pain medications. Abdominal CT in ER today was negative for bowel obstruction or abscess. There was no overt inflammation as compared to last scan in July. He was dosed with Haldol in the emergency room to help with pain. Plan was to discharge home , however, he and became very angry and did not wish to go home. REVIEW OF SYSTEMS: I completed a 10-point review of systems, negative except as noted in HPI. PAST MEDICAL HISTORY: 1. Crohn disease status post 5 bowel resections. 2. Chronic opioid dependency. 3. Hypertension. 4. Avascular necrosis. PAST SURGICAL HISTORY: 1. Five abdominal resections. 2. Left hip. FAMILY HISTORY: No Crohn. SOCIAL HISTORY: Lives in [place] with his . No tobacco, alcohol, or drugs. ALLERGIES: Fentanyl, nalbuphine. MEDICATIONS: At home, budesonide 9 q.h.s., Oxycodone 3 mg q.8, Imitrex as needed, Compazine as needed, Zofran as needed, hydrocortisone suppository as needed, vitamin B12 shots monthly, and Humira weekly. PHYSICAL EXAM: VITAL SIGNS: Temperature 36.8, blood pressure 111/65, heart rate is in the 50s, respirations 16, 95% on room air. GENERAL: Patient is pale , lying in bed. HEENT: PERRLA, EOMI. Oropharynx clear. CV: Regular rate and rhythm. No murmurs, gallops, or rubs. LUNGS: Clear to auscultation bilaterally. ABDOMEN: Multiple surgical scars, nondistended. Minimal pain in left lower quadrant with palpation. No rebound or guarding. Positive bowel sounds throughout. : No suprapubic tenderness. MUSCULOSKELETAL: 5/5 upper lower extremity strength. NEURO: 2 through 12 intact. PSYCH: Alert and oriented x3. Became mildly agitated during the interview. LABORATORY DATA: WBC 8.5, hemoglobin 14, hematocrit 40, platelets 234. Sodium 140, potassium 4.0, chloride 107, creatinine 1, calcium 9.4. LFTs are within normal. Lipase 48. CT abdomen 10/26/2016 no bowel obstruction, no mesenteric or fluid collection, atherosclerotic aorta without aneurysm, bilateral renal cysts without evidence of urinary tract obstruction. No hepatosplenomegaly or ascites. ASSESSMENT AND PLAN: 1. Acute on chronic abdominal pain: he was concerned about a small bowel obstruction. CT abdomen was reassuring. There was no evidence of inflammation as compared to the last scan, although he has been on steroids. Labs are also reassuring. Initially patient and were agreeable to discharge home, but became angry thus was admitted to the hospital. I explained in detail to the patient that I have no acute indication for the use of IV opioids. I am agreeable to using orals for breakthrough. Can speak with GI in the morning to see if they would want to do MR enterography here or outpatient.. 2. Crohn's disease: continue Entocort. Humira weekly. Check GI panel to ensure no infection. Afebrile, normal CBC. 3. Chronic opioid dependency: this is of great concern. He was initially agreeable to be discharged from the hospital. Then when admitted, I explained plan was IVFs and oral opioids. He became angry when he learned no IV opioids prescribe. He has no clinical indication for IV meds based on exam, normal labs and CT.Anxiety seems to be contributing. PRN Ativan. 4. Diet: Advance as tolerated. IV fluids. 5. Deep venous thrombosis prophylaxis: Low risk, ambulatory. 6. Disposition: Patient warrants observation admission given abdominal pain. Suspect the patient can discharge in the morning if improved. /[id number]/MODL MTDD
[2016-10-27] MEDS ORDERED: LORazepam 0.5 MG TAB PO PRN (02:36)
[2016-10-27] MEDS ORDERED: HYDROmorphONE/DILAUDID 2 MG TAB PO ONE (10:35)
--- NOTE | 2016-10-27 11:46 | GCON ---
[f rep st] CONSULTATION GI INPATIENT CONSULTATION DATE OF CONSULTATION: 10/27/2016 REASON FOR CONSULTATION: I was kindly requested to see the patient in consultation by Mariza Andujar for a chief complaint of abdominal pain. HISTORY OF PRESENT ILLNESS: He was admitted with the above. He has had chronic abdominal pain for at least a couple of years. He points to his left upper quadrant for the location. Yesterday, it got worse. Usually, he has at baseline about 8 bowel movements a day. However, with the above, he feels that he is now not having as many bowel movements. He did have some nausea with the above yesterday. He has a history of Crohn disease. He is followed by my partner, Dr. Bowers, who last saw him on September 30. He has had multiple surgeries in the past for his Crohn's. Presently, he is on Humira weekly and Entocort. A probiotic was also started. An MR enterography was planned by Dr. Bowers, to assess how his disease is doing with the above. Of note, he has been on methotrexate, Remicade and azathioprine in the past. PAST MEDICAL HISTORY: 1. As above. 2. Chronic opioid dependency. 3. Hypertension. 4. Avascular necrosis. 5. Otherwise, noncontributory. ALLERGIES: Include fentanyl and nalbuphine. OUTPATIENT MEDICATIONS: Include oxycodone, Imitrex, Compazine, and the above. His dose of Entocort is 9 mg daily. SOCIAL HISTORY: He is . FAMILY HISTORY: Negative for Crohn's. REVIEW OF SYSTEMS: Positive pertinent review of systems as per my HPI. Otherwise, a complete review of systems is negative. PHYSICAL EXAM: CONSTITUTIONAL: Nontoxic-appearing gentleman. SKIN: Warm, dry. EYES: Pupils equal, round, react to light and accommodation. EAR, NOSE, MOUTH, THROAT: Moist mucosa, no masses seen. CARDIOVASCULAR: Normal S2. Normal PMI. RESPIRATORY: Lungs clear to auscultation and percussion anteriorly. GASTROINTESTINAL: Moderate left upper quadrant tenderness, to very superficial palpation. No masses. Well-healed surgical scars. NEUROLOGIC : Cranial nerves grossly intact, with normal station. PSYCHIATRIC: Orientation , insight appropriate. MUSCULOSKELETAL: Strength grossly normal throughout, normal station. LABORATORY DATA: CT scan of the abdomen and pelvis unremarkable, without signs of inflammatory disease or obstruction, but without oral contrast. IV contrast was used. Normal CBC. Normal CMP. Normal lipase. Past CRPs have been normal. ASSESSMENT: Abdominal pain. Overall, suspect this is not related to his Crohn' s. Specifically, I do not suspect any active inflammatory Crohn's or any obstructive disease, based on CT, negative inflammatory markers, atypical and exaggerated symptoms, etc.. Rather, suspect this is functional in nature ( psychosomatic or pain medicine seeking overlay). PLAN: 1. Recommend continuing his outpatient Entocort daily and Humira weekly. 2. Will cancel his order for GI pathogen stool studies (do not suspect this is an infectious etiology). 3. Otherwise, further management would need to be psychiatric and via his pain medicine physician. I will sign off. In terms of his past history of Crohn's, he has an outpt. f/u appt. with Dr. Bowers in the second week of November. Thank you for allowing me to help in the care of this patient. Please call if we can be of further help [phone]. /[id number]/MODL MTDD
[2016-10-27] MEDS ORDERED: PROMETHAZINE HCL 25 MG SUPPR PR ONE (13:37)
[2016-10-27] MEDS ORDERED: PROMETHAZINE HCL 25 MG TAB PO ONE (13:37)
[2016-10-27] MEDS ORDERED: HYDROmorphONE/DILAUDID 2 MG TAB PO PRN (13:52)
--- NOTE | 2016-10-27 14:04 | HOSPPROG ---
Hospitalist Progress Note Assessment/Plan: 56y male with c/o abd pain. D/W Dr Bassett and Dr Alcala. #Abd pain uncelar etiol MR ordered appreciate Dr Alcala one time dose of dilaudid Pt called STAT team x3. Will cont to hold IV pain meds Phenergan PO or [place] ordered #Chronic narcotic use pt is seeing a pain clinic trying to get off pain meds # Plan cont supportive care MR ordered Pt requesting a different provider. Signed out to Dr Crain. Subjective: Still having abd pain. Still upset. Objective: Vital Signs Temp Pulse Resp BP Pulse Ox 36.7 C 61 14 115/68 95 10/27/16 11:57 10/27/16 11:57 10/27/16 07:48 10/27/16 11:57 10/27/16 11:57 10/26/16 10/27/16 10/28/16 05:59 05:59 05:59 Intake Total 3100 Output Total 400 Balance 2700 - Physical Exam Constitutional: no apparent distress Eyes: PERRL, anicteric sclera Ears, Nose, Mouth, Throat: moist mucous membranes, hearing normal Cardiovascular: No JVD, No edema Respiratory: no respiratory distress Gastrointestinal: tenderness, No guarding Skin: warm, normal color Musculoskeletal: no joint effusions, generalized weakness Neurologic: AAOx3 Psychiatric: not encephalopathic, anxious, poor judgement ICD10 Worksheet Patient Problems: Problems Problem Status Onset Abdominal pain Acute Crohns disease Acute
[2016-10-27] MEDS ORDERED: PROMETHAZINE HCL 25 MG TAB PO PRN (15:08)
[2016-10-27] MEDS: HYDROmorphONE/DILAUDID 1 MG/ML SYR IVP PRN (15:19)
--- NOTE | 2016-10-27 15:19 | HOSPPROG ---
Hospitalist Progress Note Assessment/Plan: assessment: 56-year-old male presents with acute on chronic abdominal pain in the setting of history of Crohn's disease and functional abdominal pain syndrome Plan: 1. Abdominal pain. Acute on chronic, new problem this provider, further workup indicated. Potential etiologies include acute bowel distension and obstructive pathology versus acute Crohn's flare versus functional abdominal pain syndrome. - discussed with Mariza Andujar, hospitalist provider, she has reported to me that patient's abdominal pain has continued to escalate despite attempts to utilize oral Dilaudid 2 mg for breakthrough pain control as well as continuing his oxycodone immediate release 30 mg q.8 hours - patient is crying and requesting additional pain medication and he is currently vomiting during this exam, will require IV pain medication to stabilize pain control -give 1 dose of IV Dilaudid right now, then dose IV p.r.n. thereafter, attempting to cycle in an oral dose of 2-4 mg Dilaudid for more prolonged affect if able - expanded dose range of oral antiemetics, continue combination of Phenergan and Zofran -given hypoactive bowel sounds and no bowel movements today, suspect that either obstructive pathology or bowel distention are the primary cause of his acute worsening of abdominal pain with suspected functional pain overlay -get abdominal plain film x-ray to ensure there is no evidence of small-bowel obstruction -repeat CBC, ESR, CRP in a.m. 2. History of Crohn's disease. Review of outside records demonstrates that patient was treated for what was suspected to be in acute Crohn's flare on 2016, abdominal CT demonstrating inflammation consistent with Crohn's flare although his inflammatory markers were negative at that time -patient will be continued on budesonide but should be adjusted to IV Solu- Medrol if he is unable to tolerate oral intake this evening or his symptoms continue to worsen -I do not believe the patient is experiencing acute Crohn's flare at this time given his reduction in bowel movements which would be very atypical for his Crohn flares -appreciate consultation by Dr. Alcala -get MR enterography tomorrow a.m. when patient is feeling better Diet. Clear liquid diet Prophylaxis. High risk patient, Lovenox 40 Code. Full Disposition. Anticipated discharge uncertain this time, anticipated length stay is greater than 48 hours warranting inpatient admission status for escalating acute on chronic pain requiring introduction of IV pain medications as well as escalation of oral pain medication and antiemetic medications, warranting further workup to rule out small-bowel obstruction as well as MR enterography to rule out acute Crohn's flare. Subjective: Patient is tearful and indicating that he has uncontrolled pain Objective: Vital Signs Temp Pulse Resp BP Pulse Ox 36.7 C 61 14 115/68 95 10/27/16 11:57 10/27/16 11:57 10/27/16 07:48 10/27/16 11:57 10/27/16 11:57 10/26/16 10/27/16 10/28/16 05:59 05:59 05:59 Intake Total 3100 Output Total 400 Balance 2700 - Physical Exam Constitutional: obese, uncomfortable, No no apparent distress ( moderately distressed), No not in pain ( severe) Cardiovascular: regular rate and rhythym, no murmur, rub, or gallop Respiratory: no respiratory distress, no rales or rhonchi, clear to auscultation Gastrointestinal: tenderness ( left hemidiaphragm), other ( warm left abdomen), No normoactive bowel sounds ( hypoactive bowel sounds), No guarding, No distension Skin: other ( scars without any surrounding erythema on his abdomen) Neurologic: AAOx3 Psychiatric: not encephalopathic, thought process linear, anxious, other ( tearful), No agitated ICD10 Worksheet Patient Problems: Problems Problem Status Onset Abdominal pain Acute Crohns disease Acute
[2016-10-27] MEDS: ONDANSETRON 4 MG/2 ML VIAL IVP PRN ×3 (16:08→20:31)
[2016-10-27] MEDS: HYDROmorphONE/DILAUDID 2 MG TAB PO PRN ×2 (16:26→20:32)
[2016-10-27] MEDS: BUDESONIDE 3 MG EC CAP PO SCH (20:32)
[2016-10-28] MEDS: ONDANSETRON 4 MG/2 ML VIAL IVP PRN (00:56)
[2016-10-28] MEDS: HYDROmorphONE/DILAUDID 1 MG/ML SYR IVP PRN (00:56)
[2016-10-28 05:30] LABS: % IMMATURE GRANULYOCYTES 0.3 % (0.0-1.1); ABSOLUTE IMMATURE GRANULOCYTES 0.02 10^3/uL (0.00-0.10); ADD DIFF? NO; ADD MORPH? NO; ADD SCAN? NO; ATYPICAL LYMPHOCYTE FLAG 10 (0-99); FRAGMENT RBC FLAG 0 (0-99); HEMATOCRIT 38.2 % (40.0-51.0); HEMOGLOBIN 13.2 g/dL (13.7-17.5); LEFT SHIFT FLG 0 (0-99); LIPEMIA HEMOLYSIS FLAG 90 (0-99); MEAN CELL HEMOGLOBIN 32.4 pg (27.9-34.1); MEAN CELL HEMOGLOBIN CONCENTR. 34.6 g/dL (32.4-36.7); MEAN CELL VOLUME 93.6 fL (81.5-99.8); MEAN PLATELET VOLUME 9.5 fL (8.7-11.7); PLATELET CLUMPS FLAG 0 (0-99); PLATELET COUNT 202 10^3/uL (150-400); RED BLOOD CELL COUNT 4.08 10^6/uL (4.40-6.38); RED CELL DISTRIBUTION WIDTH 12.9 % (11.5-15.2)
[2016-10-28 05:53] LABS: ANION GAP 6 mEq/L (8-16); C-REACTIVE PROTEIN < 5.0 mg/L (<10.0); CALCIUM 9.2 mg/dL (8.5-10.4); CARBON DIOXIDE 25 mEq/l (22-31); CHLORIDE 106 mEq/L (97-110); CREATININE 0.9 mg/dL (0.7-1.3); GLOMERULAR FILTRATION RATE > 60; GLUCOSE 119 mg/dL (70-100); SODIUM 137 mEq/L (134-144)
[2016-10-28 05:59] LABS: SEDIMENTATION RATE 15 MM/HR (0-20)
[2016-10-28] MEDS: HYDROmorphONE/DILAUDID 2 MG TAB PO PRN ×4 (05:59→18:54)
[2016-10-28] MEDS ORDERED: DICYCLOMINE 20 MG TAB PO ONE (08:50)
[2016-10-28] MEDS: NS 1,000 ML IV SCH (11:19)
[2016-10-28] MEDS: DICYCLOMINE 10 MG CAP PO SCH ×3 (12:16→21:13)
[2016-10-28] MEDS: METOCLOPRAMIDE 10 MG/2 ML VIAL IVP SCH ×2 (16:36→23:50)
--- NOTE | 2016-10-28 17:54 | HOSPPROG ---
Hospitalist Progress Note Assessment/Plan: assessment: 56-year-old male presents with acute on chronic abdominal pain in the setting of history of Crohn's disease and functional abdominal pain syndrome Plan: 1. Abdominal pain. Acute on chronic, suspect 2/2 painful bowel distension in setting of hypersensitivity and functional abd pain syndrome, no e/o SOB on x- ray and active crohn's disease is less likely w/ normal ESR/CRP and absent BMs - encouraged BM, patient agrees to enema - will use scheduled reglan - 2nd line zofran/dilaudid - encourage PO intake to also help stimulate BM 2. History of Crohn's disease. Review of outside records demonstrates that patient was treated for what was suspected to be in acute Crohn's flare on 2016, abdominal CT demonstrating inflammation consistent with Crohn's flare although his inflammatory markers were negative at that time -patient will be continued on budesonide -appreciate consultation by Dr. Alcala -get MR enterography tomorrow a.m. when patient is feeling better Diet. Clear liquid diet adv to regular Prophylaxis. High risk patient, Lovenox 40 Code. Full Disposition. Patient oral intake remains low, so unable to safely discharge before he has safely advanced his diet. Subjective: patient reports he has only been able to tolerate sips of liquid, has not had a bowel movement today, is passing gas Objective: Vital Signs Temp Pulse Resp BP Pulse Ox 37.1 C 62 16 126/73 H 92 10/28/16 15:35 10/28/16 15:35 10/28/16 15:35 10/28/16 15:35 10/28/16 15:35 Laboratory Results 10/28/16 05:07 10/28/16 05:07 10/27/16 10/28/16 10/29/16 05:59 05:59 05:59 Intake Total 1750 1500 Output Total 900 Balance 850 1500 - Physical Exam Constitutional: appears nourished, obese, uncomfortable, No not in pain Cardiovascular: regular rate and rhythym, no murmur, rub, or gallop, No edema Respiratory: no respiratory distress, no rales or rhonchi, clear to auscultation Gastrointestinal: normoactive bowel sounds, tenderness ( mild to moderate depth palpation left upper quadrant), No guarding, No distension Skin: other ( no erythema over the abdomen incision site, scarred) Neurologic: AAOx3 Psychiatric: interacting appropriately, not anxious, not encephalopathic, thought process linear ICD10 Worksheet Patient Problems: Problems Problem Status Onset Abdominal pain Acute Crohns disease Acute
[2016-10-28] MEDS: ENOXAPARIN 40 MG/0.4 ML SYR SC SCH (18:15)
[2016-10-28] MEDS: BUDESONIDE 3 MG EC CAP PO SCH (21:13)
[2016-10-29] MEDS: HYDROmorphONE/DILAUDID 2 MG TAB PO PRN ×5 (01:33→19:02)
[2016-10-29] MEDS: DICYCLOMINE 10 MG CAP PO SCH ×4 (05:30→21:13)
[2016-10-29] MEDS: METOCLOPRAMIDE 10 MG/2 ML VIAL IVP SCH ×3 (05:31→19:08)
[2016-10-29] MEDS: ONDANSETRON DISINTEGRATING 4 MG TAB PO PRN (06:20)
[2016-10-29] MEDS: ONDANSETRON 4 MG/2 ML VIAL IVP PRN (08:47)
[2016-10-29] MEDS ORDERED: LACTULOSE 200 GM in SODIUM CL IRRIG SOLUTION 700 ML PR PRN (10:39)
[2016-10-29] MEDS: ENOXAPARIN 40 MG/0.4 ML SYR SC SCH (10:45)
--- NOTE | 2016-10-29 18:21 | HOSPPROG ---
Hospitalist Progress Note Assessment/Plan: assessment: 56-year-old male presents with acute on chronic abdominal pain in the setting of history of Crohn's disease and functional abdominal pain syndrome Plan: 1. Abdominal pain. Acute on chronic, suspect 2/2 painful bowel distension in setting of hypersensitivity and functional abd pain syndrome, no e/o SOB on x- ray and active crohn's disease is less likely w/ normal ESR/CRP and absent BMs - encouraged BM, patient w/o effect from enema x 2 yesterday, give fleet's today - cont scheduled reglan - 2nd line zofran/dilaudid - encourage PO intake to also help stimulate BM 2. History of Crohn's disease. Review of outside records demonstrates that patient was treated for what was suspected to be in acute Crohn's flare on 2016, abdominal CT demonstrating inflammation consistent with Crohn's flare although his inflammatory markers were negative at that time -patient will be continued on budesonide -appreciate consultation by Dr. Alcala -get MR enterography tomorrow a.m. as outpt if feeling better Diet. Clear liquid diet adv to regular, as claire Prophylaxis. High risk patient, Lovenox 40 Code. Full Disposition. Patient oral intake remains low and inadequate to safely discharge Subjective: reports poor PO intake 2/2 no BMs Objective: Vital Signs Temp Pulse Resp BP Pulse Ox 36.7 C 75 16 112/71 90 L 10/29/16 16:00 10/29/16 16:00 10/29/16 16:00 10/29/16 16:00 10/29/16 16:00 Laboratory Results 10/28/16 05:07 10/28/16 05:07 10/28/16 10/29/16 10/30/16 05:59 05:59 05:59 Intake Total 1750 3250 500 Output Total 900 Balance 850 3250 500 - Pending Discharge Pending Discharge Within 24 Hours: Yes Pending Discharge Date: 10/30/16 Pending Discharge Time: 11:00 - Physical Exam Constitutional: no apparent distress, chronically ill appearing, obese, uncomfortable, No not in pain Cardiovascular: regular rate and rhythym, no murmur, rub, or gallop Respiratory: no respiratory distress, no rales or rhonchi, clear to auscultation Gastrointestinal: normoactive bowel sounds, tenderness (mild to moderate depth palpation LUQ), No guarding, No distension Neurologic: AAOx3 Psychiatric: not encephalopathic, thought process linear, anxious, flat affect, No agitated ICD10 Worksheet Patient Problems: Problems Problem Status Onset Abdominal pain Acute Crohns disease Acute
[2016-10-29] MEDS: BUDESONIDE 3 MG EC CAP PO SCH (21:12)
[2016-10-30] MEDS: HYDROmorphONE/DILAUDID 2 MG TAB PO PRN ×4 (00:28→16:32)
[2016-10-30] MEDS: METOCLOPRAMIDE 10 MG/2 ML VIAL IVP SCH ×4 (01:08→18:49)
[2016-10-30] MEDS: DICYCLOMINE 10 MG CAP PO SCH ×3 (05:15→15:56)
[2016-10-30 08:27] VITALS: RESP 18
[2016-10-30] MEDS: ENOXAPARIN 40 MG/0.4 ML SYR SC SCH (10:35)
[2016-10-30] MEDS: ONDANSETRON 4 MG/2 ML VIAL IVP PRN (11:17)
[2016-10-30] MEDS: ONDANSETRON DISINTEGRATING 4 MG TAB PO PRN (11:21)
[2016-10-30 15:09] VITALS: BP 111/74; PULSE 70; TEMP 98.4; O2SAT 93
--- NOTE | 2016-10-30 19:48 | PDDCSUM ---
Discharge Summary Discharge Summary: Discharge Diagnoses 1. Acute on chronic abdominal pain 2. Functional abdominal pain syndrome 3. History of Crohn's Disease 4. Chronic pain with continuous opiate dependency Consultations: Dr. Alcala (GI) Procedures: CT abd w/o inflammed bowel, X-ray w/o obstruction Subjective: patient continued to have intermittent abdominal pain, but was tolerating oral intake and moving bowels at time of discharge Physical Exam: VSS, bowel sounds present, abdomen is soft w/ mild tenderness to moderate depth palpation, AAOx3 Hospital Course by Problem 1. Acute on Chronic abdominal pain. It is suspected that the primary cause of his acute abdominal pain is symptomatic bowel distension, with hypersensitivity characteristic of functional abdominal pain. Initially, it was unclear if this was a Crohn's flare, but, given his normal abdominal CT and unremarkable inflammatory markers, as well as his complete absence of bowel movements, active Crohn's was believed to be exceptionally unlikely. That said, his pain was significant, and relief was not accomplished with oral medications. He required IV pain Rx (dilaudid), as well as supportive IVF, as he was not tolerating oral intake secondary to pain and nausea. Once pain relief was accomplished, the patient slowly advanced his diet and incorporated oral pain medications, including scheduled bentyl and relgan. He also required several enemas in order to induce bowel movements, as constipation from immobility and opiate pain medications certainly contributed to his pain. We spent considerable time trying to educate the patient that alternating diarrhea and constipation, coupled with pain, are characteristic of functional abdominal pain syndrome, and his best opportunity for symptom management involves managing these symptoms, rather than relying on opiate pain medications and hospitalization. He does not have particular insight into their potential relationship to mental health. 2. History of Crohn's disease. As noted above, active Crohn's disease was effectively ruled out. The patient was seen by Dr. Alcala, and we agreed that steroid burst was not indicated for this presentation. We attempted to procure an MR Enterography (an outpatient study had been ordered by his primary design printing machine setter, Dr. Bowers), but the patient consistently encountered issues with PO intake or abdominal symptoms whenever it was time to have the procedure performed. Consequently, we were unable to perform the procedure, and , if indicated, it will need to be completed as an outpatient. 3. Chronic pain w/ continuous opiate dependency. Patient definitely has a physiological opiate dependency, which is currently reportedly being managed by an outpatient shading painter. It is unclear whether his presenting symptoms of diarrhea and abdominal pain are actually withdraw symptoms from potential lack of access to opiate medications, although the patient reports that he has regular, frequent prescriptions from his outpatient provider. At the conclusion of his hospitalization, the patient requested a limited supply of oxy IR 20mg q6hrs PRN to last until his outpatient provider can refill next Thursday. We complied with this request. Medications at time of discharge: please see official discharge medication reconcilliation sheet, of note, continuing all home medications w/ the addition of reglan 10mg q6hrs PRN nausea, bentyl 10mg q6hrs PRN pain, oxycodone IR 20mg q6hrs PRN pain > 60 minutes spent on direct patient care, as well as coordinating discharge.
[2016-10-30] MEDS ORDERED: IPRATROPIUM/ALBUTEROL 3 ML DEYVIAL ONE (20:54)
== END 2016-10-30 19:05 | disposition home or self-care (01) | DRG 392 ==
LOC: F3E 22:40 → OBSVTOIN 10-27 15:54
PROVIDERS: ADMIT Hospitalist; ATTEND Internal Medicine
DX: R10.9 Unspecified abdominal pain (principal); G89.29 Other chronic pain; F11.20 Opioid dependence, uncomplicated; K50.90 Crohn's disease, unspecified, without complications
CPT/HCPCS: 96374; J1170; J1650; J2405; Q9967

== ENCOUNTER 2017-02-11 09:15 | Inpatient (IN) | payer OTHER ==
[~2017-02-11 09:15] MED LIST: ROPIVACAINE 0.2% 80 MG, EPINEPHrine 0.2 MG in BAG 0 ML IU ONE; TRANEXAMIC ACID 3,000 MG in NS 50 ML IRR ONE
--- NOTE | 2017-02-11 09:19 | PDHPUP ---
History & Physical Update H&P update statement: This history and physical update is based on an assessment of the patient which was completed after admission or registration (within 24 hours), but prior to the surgery/procedure. H&P update: H&P reviewed & patient examined, no change in patient's condition since H&P completed
[2017-02-11] MEDS ORDERED: FAMOTIDINE 20 MG TAB PO ONE (09:21)
[2017-02-11] MEDS ORDERED: ceFAZolin 2 GM/DEXTROSE 100 ML IV ONE (09:21)
[2017-02-11] MEDS ORDERED: ACETAMINOPHEN 325 MG TAB PO ONE (09:21)
[2017-02-11] MEDS ORDERED: DEXAMETHASONE 4 MG/ML VIAL IVP ONE (09:21)
[2017-02-11] MEDS ORDERED: LIDOCAINE 1% 2 ML INJ ID PRN (09:22)
[2017-02-11] MEDS ORDERED: LR 1,000 ML IV ONE (09:22)
[2017-02-11] MEDS ORDERED: TRANEXAMIC ACID 3,000 MG/50 ML BAG IRR ONE (09:51)
--- NOTE | 2017-02-11 09:53 | PDANEPAE ---
ANE History of Present Illness 56 year old male w/ PMHx of avascular necrosis of hip presents for right total hip arthroplasty. ANE Past Medical History - Cardiovascular History Hx Hypertension: No Hx Arrhythmias: No Hx Chest Pain: No Hx Coronary Artery / Peripheral Vascular Disease: No Hx CHF / Valvular Disease: No Hx Palpitations: No - Pulmonary History Hx COPD: No Hx Asthma/Reactive Airway Disease: No Hx Recent Upper Respiratory Infection: No Hx Oxygen in Use at Home: No Hx Sleep Apnea: No Sleep Apnea Screening Result - Last Documented: Negative - Neurologic History Hx Cerebrovascular Accident: No Hx Seizures: No Hx Dementia: No - Endocrine History Hx Diabetes: No Hypothyroid: No Hyperthyroid: No Obesity: no - Renal History Hx Renal Disorders: No - Liver History Hx Hepatic Disorders: No - Neurological & Psychiatric Hx Hx Neurological and Psychiatric Disorders: No - Cancer History Hx Cancer: No - Congenital Disorder History Hx Congenital Disorders: No - GI History GERD: mild Hx Gastrointestinal Disorders: Yes Gastrointestinal History Comment: CHRON'S DISEASE. 5 BOWEL SURGERIES PREVIOUSLY. hx of reflux. nausea prn - Other Health History Other Health History: VASCULAR NECROSIS OF BILATERAL HIPS D/T YEARS OF STEROIDS. VEINS ARE NECROTIC WELL. wears reading glasses - Chronic Pain History Chronic Pain: Yes (right hip and chrons) - Surgical History Prior Surgeries: 5 BOWEL RESECTIONS. LEFT DANIEL IN [place] 2008. colonoscopies (multiple) ANE Review of Systems Review of systems is: negative Review of Systems: - Exercise capacity Exercise capacity: >=4 METS METS (RN): 4 METS ANE Patient History - Allergies Allergies/Adverse Reactions: fentanyl Allergy (Verified 01/14/17 11:53) Dyspnea nalbuphine HCl [From Nubain] Allergy (Verified 01/14/17 11:53) Other-Enter Comments - Home Medications Home medications: home medication list seen and reviewed Home Medications: RX: Prochlorperazine Maleate [Compazine 25mg supp (*)] RC DAILY PRN 02/25/16 [ Last Taken Unknown] RX: Adalimumab [Humira Pen] mg SQ SA 04/17/16 [Last Taken 10/25/16] RX: Hydrocortisone Acetate [Proctosert Hc] RC DAILY PRN 04/17/16 [Last Taken Unknown] RX: SUMAtriptan [Imitrex 50 MG (*)] PRN 04/17/16 [Last Taken Unknown] RX: Ondansetron Odt [Zofran Odt 4 mg (*)] PRN 01/14/17 [Last Taken Unknown] RX: oxyCODONE IR [Oxycodone Ir (*)] QID 01/14/17 [Last Taken Unknown] - NPO status NPO Status: no food or drink >8 hours - Anes Hx Anes Hx: no prior problems - Smoking Hx Smoking Status: Former smoker Marijuana use: No - Alcohol Use Alcohol Use: None - Family Anes Hx Family Anes Hx: neg - N/A Family Hx Anesthesia Complications: NONE ANE Labs/Vital Signs - Vital Signs Vital Signs: reviewed preoperatively; see RN documention for details Blood Pressure: 118/73 Heart Rate: 62 Respiratory Rate: 16 O2 Sat (%): 95 Height: 185.42 cm Weight: 95.254 kg ANE Physical Exam - Airway Neck exam: FROM Mallampati Score: Class 2 Mouth exam: poor dentition, dentures - Pulmonary Pulmonary: no respiratory distress - Cardiovascular Cardiovascular: regular rate and rhythym - ASA Status ASA Status: III ANE Anesthesia Plan Anesthesia Plan: MAC, spinal Total IV Anesthesia: Yes
[2017-02-11] MEDS ORDERED: MIDAZOLAM 2 MG/2 ML VIAL IVP ONE (09:54)
[2017-02-11] MEDS ORDERED: MIDAZOLAM 2 MG/2 ML VIAL ONE (09:59)
[2017-02-11] MEDS ORDERED: PROPOFOL/EMULSION 500 MG/50 ML BOTTLE IV ONE (10:01)
[2017-02-11] MEDS ORDERED: DEXAMETHASONE 4 MG/ML VIAL ONE ×2 (10:10→11:13)
[2017-02-11] MEDS ORDERED: ONDANSETRON 4 MG/2 ML VIAL ONE (10:10)
[2017-02-11] MEDS ORDERED: HYDROmorphONE/DILAUDID 2 MG/ML INJ ONE (11:08)
[2017-02-11] MEDS ORDERED: ROCURONIUM 50 MG/5 ML VIAL ONE ×2 (11:20→11:24)
[2017-02-11] MEDS ORDERED: KETAMINE 100 MG/10 ML SYR ONE (11:38)
[2017-02-11] MEDS ORDERED: OXYCODONE/APAP 5/325 TAB PO PRN (11:41)
[2017-02-11] MEDS ORDERED: ONDANSETRON 4 MG/2 ML VIAL IVP PRN ×2 (11:41→12:22)
[2017-02-11] MEDS ORDERED: NALOXONE HCL 0.4 MG/ML INJ IVP PRN (11:41)
[2017-02-11] MEDS ORDERED: LR 500 ML IV PRN (11:41)
[2017-02-11] MEDS ORDERED: SUGAMMADEX SODIUM 200 MG/2 ML VIAL IVP ONE (12:00)
[2017-02-11] MEDS ORDERED: DIPHENOXYLATE/ATROPINE LOMOTIL 1 TAB PO PRN (12:22)
[2017-02-11] MEDS ORDERED: PROMETHAZINE HCL 25 MG/ML INJ IVP PRN (12:22)
[2017-02-11] MEDS ORDERED: BISACODYL 10 MG SUPP PR PRN (12:22)
[2017-02-11] MEDS ORDERED: MAGNESIUM HYDROXIDE 30 ML UDCUP PO PRN (12:22)
[2017-02-11] MEDS ORDERED: ONDANSETRON DISINTEGRATING 4 MG TAB PO PRN (12:22)
[2017-02-11] MEDS ORDERED: PROMETHAZINE HCL 25 MG SUPPR PR PRN (12:22)
[2017-02-11] MEDS ORDERED: diphenhydrAMINE 25 MG CAP PO PRN (12:22)
[2017-02-11] MEDS ORDERED: POLYETHYLENE GLYCOL 3350 17 GM PKT PO PRN (12:22)
[2017-02-11] MEDS ORDERED: LACTULOSE 20 GM/30 ML UDCUP PO PRN (12:22)
[2017-02-11] MEDS ORDERED: TEMAZEPAM 15 MG CAP PO PRN (12:22)
[2017-02-11] MEDS ORDERED: HYDROmorphONE/DILAUDID 1 MG/ML SYR ONE ×2 (12:26→13:16)
[2017-02-11] MEDS: HYDROmorphONE/DILAUDID 1 MG/ML SYR IVP PRN ×5 (12:28→13:26)
[2017-02-11] MEDS ORDERED: OXYCODONE/APAP 5/325 TAB ONE (12:33)
[2017-02-11] MEDS: CYCLOBENZAPRINE 10 MG TAB PO PRN (14:03)
[2017-02-11] MEDS: LR 1,000 ML IV SCH (14:04)
[2017-02-11] MEDS: oxyCODONE IR 5 MG TAB PO PRN ×3 (14:04→20:20)
--- NOTE | 2017-02-11 14:24 | POSTANESTH ---
Post Anesthetic Evaluation Cardiovascular Status: Normal, Stable, Similar to Pre-Op Cond Respiratory Status: Normal, Stable, Similar to Pre-op Cond. Level of Consciousness/Mental Status: Can Participate in Eval, Alert and Oriented Pain Control: Adequate, Prn Tx Ordered Nausea/Vomiting Control: Adequate, Prn Tx Ordered Complications Possibly Related to Anesthesia: None Noted
[2017-02-11] MEDS ORDERED: SUMAtriptan 50 MG TAB PO PRN (14:42)
[2017-02-11] MEDS ORDERED: PROCHLORPERAZINE MALEATE 25 MG SUPPR PR PRN (14:42)
[2017-02-11] MEDS ORDERED: WARFARIN SODIUM 5 MG TAB PO SCH (16:00)
[2017-02-11] MEDS: ceFAZolin 2 GM/DEXTROSE 100 ML IV SCH (17:19)
[2017-02-11] MEDS: ACETAMINOPHEN 325 MG TAB PO SCH ×3 (17:20→20:40)
[2017-02-11] MEDS: ASPIRIN 325 MG TAB PO SCH (20:16)
[2017-02-11] MEDS: FAMOTIDINE 20 MG TAB PO SCH (20:17)
[2017-02-11] MEDS: SENNOSIDES/DOCUSATE SODIUM TAB PO SCH (20:17)
[2017-02-12] MEDS: LR 1,000 ML IV SCH (00:07)
[2017-02-12] MEDS: oxyCODONE IR 5 MG TAB PO PRN ×4 (01:31→13:03)
[2017-02-12] MEDS: ceFAZolin 2 GM/DEXTROSE 100 ML IV SCH (01:32)
[2017-02-12 04:28] VITALS: O2SAT 95
[2017-02-12 05:24] LABS: HEMATOCRIT 32.4 % (40.0-51.0); HEMOGLOBIN 11.1 g/dL (13.7-17.5)
[2017-02-12 06:02] LABS: PROTIME(PATIENT) 13.1 SEC (12.0-15.0)
[2017-02-12] MEDS: SENNOSIDES/DOCUSATE SODIUM TAB PO SCH (07:27)
--- NOTE | 2017-02-12 07:53 | SOAPPROG ---
SOAP Progress Note Assessment/Plan: Assessment: Patient is doing well POD 1 s/p R DANIEL Pain management: pain is well controlled on oral pain meds. VTE ppx: recommend aspirin daily for 3 weeks, cont SONIDO and SCDs Anemia: level is expected initially postop. Asymptomatic. Continue to monitor D/c planning: d/c to home today pending release from PT Plan: 02/12/17 07:52 Objective: Vital Signs Temp Pulse Resp BP Pulse Ox 36.6 C 73 12 121/59 H 95 02/12/17 04:00 02/12/17 04:00 02/12/17 04:00 02/12/17 04:00 02/12/17 04:00 Laboratory Results 02/12/17 04:50 02/11/17 02/12/17 02/13/17 05:59 05:59 05:59 Intake Total 2790 Output Total 1125 Balance 1665 PT 13.1 SEC (12.0-15.0) 02/12/17 04:50 INR 1.00 (0.83-1.16) 02/12/17 04:50 ICD10 Worksheet Patient Problems: Problems Problem Status Onset Abdominal pain Acute Crohns disease Acute
[2017-02-12] MEDS: CYCLOBENZAPRINE 10 MG TAB PO PRN (08:10)
[2017-02-12] MEDS: ASPIRIN 325 MG TAB PO SCH (08:10)
[2017-02-12] MEDS: FAMOTIDINE 20 MG TAB PO SCH (08:10)
--- NOTE | 2017-02-12 08:34 | GDS ---
[f rep st] DISCHARGE SUMMARY ADMISSION DIAGNOSIS: Right hip osteoarthritis. DISCHARGE DIAGNOSIS: Right hip osteoarthritis. PROCEDURE: Right total hip arthroplasty, anterior approach. VTE PROPHYLAXIS: Full-strength aspirin x21 days. BRIEF DESCRIPTION OF HOSPITAL STAY: Patient was admitted for an elective joint arthroplasty. The pa tient tolerated the procedure well and has passed physical therapy. The patient was given appropriat e antibiotic prophylaxis and venous thromboembolism prophylaxis. The patient's pain was well control led on oral pain medication, patient was holding down food, and had urinated. Decision was made to d ischarge the patient. The patient was given post-operative prescriptions pre-operatively. PLAN: Please follow up with Dr. Lunsford as scheduled on 03/05/2017. /[id number]/MODL
--- NOTE | 2017-02-12 08:59 | GOP ---
[f rep st] OPERATIVE REPORT DATE OF OPERATION: 02/11/2017 SURGEON: Candido Lunsford MD BLASTING CAP ASSEMBLER: CURT Ferrera. ANESTHESIA: Spinal. PREOPERATIVE DIAGNOSIS: Right hip osteoarthritis. POSTOPERATIVE DIAGNOSIS: Right hip osteoarthritis. PROCEDURE PERFORMED: Total hip arthroplasty. FINDINGS: ESTIMATED BLOOD LOSS: 200 cc. IMPLANTS: Accolade II, size 6 at 127. The acetabular component a 60 mm Tritanium. The liner is a Trident X3, 36 mm. The head is a Biolox Delta 36 mm , +0. INDICATIONS: The patient has progressively worsening arthritis of the hip which has failed medical management. The patient understands the treatment options including continued non-operative care and has selected surgical intervention. The patient has decided to undergo total hip arthroplasty via the direct anterior approach, understanding the risks of the procedure including , but not limited to, neurovascular injury, infection, persistent pain, component wear and loosening, deep venous thrombosis, pulmonary embolism, limb length inequality, hip instability (including dislocation), and intra-operative fractures. DESCRIPTION OF PROCEDURE: After proper identification of the patient including verification and marking the surgical site, the patient was brought to the operating room and placed in the supine position. All bony prominences were well padded. Anesthesia was induced without complication and intravenous prophylactic antibiotics were administered prior to skin incision. The operative leg was placed in the Trumpf Arch table extension and the well leg in a Yellofin leg salazar. The patient was prepped and draped in the usual sterile fashion. The C-arm was draped for intra-operative fluoroscopy to check acetabular position, femoral component position including leg length and femoral offset. Attention was then drawn to surgical exposure of the hip. An incision was made with a #10 Bard Nas blade starting 3 cm lateral and 3 cm distal to the anterior superior iliac spine measuring 8-10 cm and coursing distally toward the greater trochanter. The skin and subcutaneous tissues were divided sharply down to the fascia norm. The fascia norm was incised in line with the skin incision exposing the underlying tensor fascia norm muscle. The muscle was bluntly elevated from the fascia and the first extracapsular Cobra retractor was placed laterally at the junction of the superior femoral neck and greater trochanter. The lateral femoral circumflex vessels were identified, cauterized , and divided with the Aquamantys bipolar cautery. The deep investing fascia of the TFL was divided to allow proper mobilization of the muscle preventing damage during the retraction. The reflected head of the rectus femoris muscle was elevated off the anterior hip capsule and a medial Cobra retractor was placed just proximal to the lesser trochanter. The anterior capsulotomy was made sharply from the superolateral acetabulum to the saddle junction of the superior femoral neck and greater trochanter, then coursing inferomedial towards the lesser trochanter. The retractors were then placed in the intracapsular position for femoral neck osteotomy. Corresponding to pre-operative templating, the osteotomy was made with the oscillating saw carefully protecting the greater trochanter and soft tissues. The femoral head was removed from the acetabulum with a corkscrew and confirmed to be severely arthritic with exposed bone, deformity and osteophytes. Similar findings were confirmed in the acetabulum. The Arch table extension was then placed in 40 degrees external rotation. Attention was then drawn to the acetabular preparation. After placement of the anterior and posterior Cobra retractors outside the labrum and intracapsular, the circumferential labrum was removed sharply. The foveal contents were then removed and hemostasis obtained with cautery. The first reamer selected was sized using the removed femoral head. Reaming began with medialization and then commenced in 2 mm increments at 45 degrees of abduction and 15 degrees of anteversion using fluoroscopic navigation. Reaming ceased 1 mm less than the definitive acetabular component and corresponded to the pre-operative templating. The final acetabular component was inserted using fluoroscopy to achieve proper orientation yielding excellent purchase and stability in the acetabulum. The final acetabular liner was then placed and its seating confirmed. Attention was then turned to the femur. The Arch table extension was placed in extension and adduction, delivering the osteotomized femoral neck into the wound. A 2-pronged femoral elevator was placed at the calcar and another at the tip of the greater trochanter. The posterolateral capsule was released with cautery allowing mobilization of the femur lateral and anterior for preparation. The external rotators were visualized and preserved. A curette and rongeur were used to open the starting point for broaching. Serial broaching started with the #0 broach and ended with the broach that exhibited excellent fit in the proximal femur. A change in pitch during mallet strikes was accompanied by the inability to advance the broach any further. The trial reduction was performed and fluoroscopic navigation was utilized to check limb length. Adjustments were made to equalize limb length accordingly. After the final trials were accepted they were removed and the wound was copiously lavaged. The femoral component was seated to the same depth as the final broach and the femoral head was impacted onto the clean trunnion. The hip was then reduced for the final time and once more fluoroscopy was used to check that limb length equality was achieved. The wound was irrigated and closed in layers, the fascia norm with 2-0 Quill, the subcutaneous tissue with 2-0 Quill, and the skin with Dermabond. Sterile dressings were applied. Final sharps and sponge counts were accurate. The patient was then transferred to a hospital bed and brought to the recovery room in stable condition. /[id number]/MODL MTDD
[2017-02-12] MEDS ORDERED: ENOXAPARIN 40 MG/0.4 ML SYR SC SCH (09:00)
[2017-02-12 11:46] VITALS: BP 117/64; PULSE 73; RESP 18; TEMP 98.6
[2017-02-12] MEDS: ACETAMINOPHEN 325 MG TAB PO SCH (12:11)
--- NOTE | 2017-02-15 17:06 | ASDISCHSUM ---
Discharge Information Plan Status:Home with No Needs Medically Cleared to Leave: Discharge Date:02/12/2017 01:44 PM CM D/C Disposition:Home, Routine, Self-Care ADT D/C Disposition:Home, Routine, Self-Care Projected Discharge Date:02/12/2017 01:44 PM Transportation at D/C: Discharge Delay Reason: Follow-Up Date:02/12/2017 01:44 PM Discharge Slot: Final Diagnosis: Placement Information Patient Contact Information Contact Name:PRUDENCIO Relationship: Address:[address] Work Phone: [facility]:[place] Alternate Phone: [facility]/Zip Code:[place] [address] Email: Financial Information Financial Class:HMO and PPO Plans Primary Plan Desc:KAZ GARCIA PPO [employer] Primary Plan Number:[id number] Secondary Plan Desc:MEDICARE INPATIENT Secondary Plan Number:[id number] Assessment Information Intervention Information
== END 2017-02-12 13:44 | disposition home or self-care (01) | DRG 470 ==
LOC: F3N 09:15
PROVIDERS: ADMIT Orthopaedic Surgery; ATTEND Orthopaedic Surgery
PROC: 0SR904Z Replacement of Right Hip Joint with Ceramic on Polyethylene Synthetic Substitute, Open Approach (ICD-10-PCS; principal; 2017-02-11 14:15)
DX: M16.11 Unilateral primary osteoarthritis, right hip (principal); D64.9 Anemia, unspecified; K50.90 Crohn's disease, unspecified, without complications
CPT/HCPCS: 97116-GP; 97161-GP; 97165-GO; G8978-GP-CJ; G8979-GP-CI; G8980-GP-CI; G8987-GO-CI; G8988-GO-CI; G8989-GO-CI; J0171; J0690; J1100; J1170; J2250; J2405; J2704; J2795